=== PATIENT | male | born 1985 | race Caucasian/White ===

== ENCOUNTER 2016-09-05 16:31 | Emergency (ER) | payer OTHER ==
[~2016-09-05 16:31] MED LIST: IBUPROFEN PO; MOBIC PO; ZICAM; ZITHROMAX PO
== END 2016-09-05 17:04 | disposition home or self-care (01) ==
LOC: SED 16:31
DX: R10.13 Epigastric pain (principal); F10.129 Alcohol abuse with intoxication, unspecified; J45.909 Unspecified asthma, uncomplicated; F17.210 Nicotine dependence, cigarettes, uncomplicated
CPT/HCPCS: 99283

== ENCOUNTER → 2016-11-28 | Outpatient (CLI) | payer OTHER ==
--- NOTE | ~2016-11-28 | CT2 ---
[facility] A Service of [facility] RADIOLOGY TEXT RESULTS PATIENT: RYAN SONG LOCATION: [facility] : 87 UNIT #: [id number] AGE: [address]: Amos Lindsay MD SEX: M ORDER DR: [id number] [facility] [address] [place], [place] [address] [id number] O MR#: [id number] Acc #: [id number] NAME: RYAN SONG : 1985 SEX: M STUDY DATE/TIME: 11/28/2016 13:30 UNIT: [facility]AT ROOM: STUDY DESCRIPTION: CT Abd and Pelv W Cont Attending Physician: Amos Lindsay M.D. Referring Physician: Amos Lindsay M.D. Ordering Physician: Amos Lindsay M.D. Primary Care Physician: Diana BaileyPNoemiRChary MEDICAL IMAGING REPORT This report is preliminary unless electronic signature is present EXAM CT abdomen and pelvis with contrast INDICATIONS Left lower quadrant abdominal pain for the past 1-2 months. PROCEDURE Contrast-enhanced CT of the abdomen and pelvis. This CT exam was performed with one or more of the following radiation dose reduction techniques: automatic exposure control, adjustment of mA and/or kV according to patient size, and iterative reconstruction. COMPARISON None FINDINGS Abdomen with contrast: Included lung bases are clear. Liver, spleen, kidneys, adrenal glands, pancreas, gallbladder unremarkable. Bowel loops are nondilated. Appendix is normal. Pelvis with contrast: No pelvic mass or fluid. No aggressive appearing bone lesion. IMPRESSION 1. No acute findings in the abdomen or pelvis. 2. Appendix is normal. Dictated by... Rohith Osullivan M.D. THIS IS AN ELECTRONICALLY VERIFIED REPORT Rohith Osullivan M.D. at 11/29/2016 7:09 AM [facility] A Service [facility] RADIOLOGY TEXT RESULTS PATIENT: RYAN SONG LOCATION: [facility] : 87 UNIT #: [id number] AGE: [address]: Amos Lindsay MD SEX: M ORDER DR: KANDACE/heather TD: 11/28/2016 20:17 JOB #: [id number] MEDICAL IMAGING REPORT Page 1 of 1 COPY
[2016-11-28 12:40] LABS: HEMATOCRIT 46.7 % (38.0-50.0); HEMOGLOBIN 15.5 gm/dL (13.0-16.0); MEAN CELL VOLUME 93.8 FL (83-96); MEAN CORPUSCULAR HEMOGLOBIN 31.2 PG (28-34); MEAN CORPUSCULAR HGB CONC 33.3 g/dL (30-36); MEAN PLATELET VOLUME 8.8 FL (6.5-11.5); RED BLOOD COUNT 4.98 X10e (3.90-5.60); RED CELL DISTRIBUTION WIDTH 14.1 % (11.0-15.5)
[2016-11-28 13:05] LABS: ALBUMIN SERUM 4.2 g/dL (3.5-5.0); BILIRUBIN,TOTAL 0.3 mg/dL (0.2-2.0); BUN/CREATININE RATIO 12.85; CALCIUM SERUM 9.1 mg/dL (8.4-10.2); CREATININE SERUM 0.7 mg/dL (0.6-1.4); GLOM FILT RATE Estimated 126.7 mL/min (>60); POTASSIUM 4.1 mmol/L (3.5-5.1); PROTEIN TOTAL SERUM 6.8 g/dL (6.0-8.3)
[2016-11-30 23:00] LABS: GLIADIN IGA AB 16 Units (<20); GLIADIN IGG AB 6 Units (<20); RETICULIN IGA SCREEN W/REFLEX Negative (Negative); TISSUE TRANSGLUTAMINASE IGA AB 1 U/mL (<4)
== END | disposition home or self-care (01) ==
LOC: CCAT 11:59
PROVIDERS: Internal Medicine
DX: R10.32 Left lower quadrant pain (principal)
CPT/HCPCS: 36415; 74177; 80053; 83516; 85027; 86255; Q9967